=== PATIENT | male | born 1975 | race Caucasian/White ===

== ENCOUNTER 2020-02-03 22:58 | Inpatient (IN) ==
[2020-02-04] MEDS ORDERED: *HR* Promethazine 25 MG/ML VIAL IVP PRN (02:02)
[2020-02-04] MEDS ORDERED: Naloxone 0.4 MG/ML INJ IVP PRN (02:02)
[2020-02-04] MEDS ORDERED: *HR* OxyCODONE Immed Rel 5 MG TABLET PO ONE (02:12)
[2020-02-04] MEDS: 0.9 % Sodium Chloride 1,000 ML IVC SCH ×2 (02:41→17:20)
[2020-02-04] MEDS ORDERED: *HR* OxyCODONE Immed Rel 5 MG TABLET PO PRN ×2 (04:00→14:28)
[2020-02-04] MEDS ORDERED: Acetaminophen IV 1,000 MG/100 ML BAG IVPB ONE (04:00)
[2020-02-04] MEDS: *HR* Heparin 5,000 UNIT/ML VIAL SQ SCH ×2 (05:23→17:20)
[2020-02-04] MEDS: Piperacillin/Tazobactam 3.375 GM in 0.9 % Sodium Chloride Mini Bag 100 ML IVPB SCH ×3 (05:24→21:49)
[2020-02-04] MEDS ORDERED: Acetaminophen 325 MG TABLET PO PRN (06:00)
[2020-02-04 07:12] LABS: Basophils % 0.1 %; Hematocrit 29.1 % (37.5-50.1); Hemoglobin 9.5 g/dL (12.9-16.9); Immature Granulocytes % 0.9 % (0-4); Lymphocytes # 0.7 K/mcL (0.6-4.6); Lymphocytes % 5.4 %; Mean Corpuscular HGB Conc 32.6 g/dL (31.6-35.5); Mean Corpuscular Hemoglobin 27.9 pg (28.0-33.3); Mean Corpuscular Volume 85.6 fL (83.0-100.0); Mean Platelet Volume 9.4 fL (9.4-12.4); Monocytes # 0.2 K/mcL (0.0-1.3); Neutrophils # 11.1 K/mcL (1.6-8.9); Platelet Count 355 K/mcL (140-400); Red Cell Distribution Width 15.4 % (11.5-14.5); Segmented Neutrophils % 91.6 %; White Blood Count 12.2 K/mcL (4.3-11.1)
[2020-02-04 07:18] LABS: INR 1.3; Prothrombin Time 14.3 Seconds (9.4-12.1)
[2020-02-04 07:33] LABS: BUN/Creatinine Ratio 15 (6-26); Blood Urea Nitrogen 13 mg/dL (6-20); Calcium 8.2 mg/dL (8.6-10.3); Carbon Dioxide 23 mEq/L (23-29); Chloride 107 mEq/L (98-107); Glucose 179 mg/dL (70-105); Magnesium 1.5 mg/dL (1.6-2.6); Osmolality,Calculated 291 (280-300); Potassium 3.7 mEq/L (3.5-5.1); Sodium 138 mEq/L (136-145); eGFR For African Americans > 60 (> 60); eGFR For Non-African Americans > 60 (> 60)
[2020-02-04] MEDS ORDERED: *HR* OxyCODONE Immed Rel 5 MG TABLET PO SCH (15:30)
[2020-02-04] MEDS ORDERED: hydrOXYzine pamoate 25 MG CAPSULE PO PRN (16:08)
[2020-02-04] MEDS: Gabapentin 400 MG CAPSULE PO SCH ×2 (17:20→20:25)
[2020-02-04] MEDS: *HR* OxyCODONE Immed Rel 5 MG TABLET PO SCH (20:24)
[2020-02-04] MEDS ORDERED: Mirtazapine 15 MG TABLET PO SCH (21:00)
[2020-02-05] MEDS: *HR* OxyCODONE Immed Rel 5 MG TABLET PO SCH ×4 (02:04→20:17)
[2020-02-05 03:16] LABS: Basophils % 0.2 %; Eosinophils % 0.3 %; Hematocrit 29.4 % (37.5-50.1); Hemoglobin 9.3 g/dL (12.9-16.9); Immature Granulocytes % 0.7 % (0-4); Lymphocytes # 1.6 K/mcL (0.6-4.6); Lymphocytes % 14.9 %; Mean Corpuscular HGB Conc 31.6 g/dL (31.6-35.5); Mean Corpuscular Hemoglobin 27.4 pg (28.0-33.3); Mean Corpuscular Volume 86.7 fL (83.0-100.0); Mean Platelet Volume 9.7 fL (9.4-12.4); Monocytes # 0.5 K/mcL (0.0-1.3); Monocytes % 5.1 %; Neutrophils # 8.3 K/mcL (1.6-8.9); Platelet Count 373 K/mcL (140-400); Red Blood Count 3.39 M/mcL (4.19-5.50); Red Cell Distribution Width 15.6 % (11.5-14.5); Segmented Neutrophils % 78.8 %; White Blood Count 10.6 K/mcL (4.3-11.1)
[2020-02-05 03:36] LABS: BUN/Creatinine Ratio 14 (6-26); Blood Urea Nitrogen 13 mg/dL (6-20); Calcium 8.3 mg/dL (8.6-10.3); Carbon Dioxide 24 mEq/L (23-29); Chloride 109 mEq/L (98-107); Glucose 144 mg/dL (70-105); Osmolality,Calculated 295 (280-300); Potassium 3.5 mEq/L (3.5-5.1); Sodium 141 mEq/L (136-145); eGFR For African Americans > 60 (> 60); eGFR For Non-African Americans > 60 (> 60)
[2020-02-05] MEDS ORDERED: Levothyroxine 25 MCG TABLET PO SCH (06:30)
[2020-02-05] MEDS: Piperacillin/Tazobactam 3.375 GM in 0.9 % Sodium Chloride Mini Bag 100 ML IVPB SCH ×3 (06:45→23:14)
[2020-02-05] MEDS: *HR* Heparin 5,000 UNIT/ML VIAL SQ SCH (06:46)
[2020-02-05] MEDS: Gabapentin 400 MG CAPSULE PO SCH ×4 (07:02→21:16)
[2020-02-05 08:50] LABS: Estimated Average Glucose 128 mg/dl; Hemoglobin A1C 6.1 %
[2020-02-05] MEDS ORDERED: Bupivacaine/EPI 1:200k 0.25%PF 10 ML VIAL INFILT ONE (15:23)
[2020-02-05] MEDS ORDERED: Lidocaine 1% 20 ML MDV ONE (15:23)
[2020-02-05] MEDS ORDERED: Vancomycin 1,000 MG VIAL ONE (15:25)
[2020-02-05] MEDS ORDERED: *HR* Midazolam HCl 2 MG/2 ML VIAL ONE (15:28)
[2020-02-05] MEDS ORDERED: *HR* Propofol 200 MG/20 ML VIAL IVP ONE (15:29)
[2020-02-05] MEDS ORDERED: Lidocaine -MPF 2% 2 ML VIAL ONE (15:31)
[2020-02-05] MEDS ORDERED: *HR* FentaNYL (PF) 100 MCG/2 ML VIAL ONE (15:33)
[2020-02-05] MEDS ORDERED: Naloxone 0.4 MG/ML INJ IVP PRN ×3 (16:12→18:43)
[2020-02-05] MEDS ORDERED: *HR* FentaNYL (PF) 100 MCG/2 ML VIAL IVP PRN ×2 (16:12→18:43)
[2020-02-05] MEDS ORDERED: Ondansetron 4 MG/2 ML VIAL ONE (16:32)
[2020-02-05] MEDS ORDERED: Dexamethasone 4 MG/ML VIAL ONE (16:32)
[2020-02-05] MEDS: *HR* HYDROmorphone PF 0.5 MG/0.5 ML SYRINGE IVP PRN ×4 (17:13→17:29)
[2020-02-05] MEDS ORDERED: *HR* Promethazine 25 MG/ML VIAL IVP PRN (18:43)
[2020-02-05] MEDS ORDERED: hydrOXYzine pamoate 25 MG CAPSULE PO PRN (18:43)
[2020-02-05] MEDS: Mirtazapine 15 MG TABLET PO SCH (21:11)
[2020-02-06] MEDS: *HR* Heparin 5,000 UNIT/ML VIAL SQ SCH ×3 (00:09→17:58)
[2020-02-06] MEDS: *HR* OxyCODONE Immed Rel 5 MG TABLET PO SCH ×4 (02:12→20:29)
[2020-02-06] MEDS: Levothyroxine 25 MCG TABLET PO SCH (06:11)
[2020-02-06] MEDS: Piperacillin/Tazobactam 3.375 GM in 0.9 % Sodium Chloride Mini Bag 100 ML IVPB SCH ×3 (06:11→22:20)
[2020-02-06 07:06] LABS: Basophils % 0.3 %; Hematocrit 31.6 % (37.5-50.1); Immature Granulocytes % 1.8 % (0-4); Lymphocytes # 1.3 K/mcL (0.6-4.6); Mean Corpuscular HGB Conc 31.6 g/dL (31.6-35.5); Mean Corpuscular Hemoglobin 26.9 pg (28.0-33.3); Mean Corpuscular Volume 84.9 fL (83.0-100.0); Mean Platelet Volume 9.4 fL (9.4-12.4); Monocytes # 0.7 K/mcL (0.0-1.3); Monocytes % 5.7 %; Neutrophils # 9.3 K/mcL (1.6-8.9); Platelet Count 425 K/mcL (140-400); Red Blood Count 3.72 M/mcL (4.19-5.50); Red Cell Distribution Width 15.8 % (11.5-14.5); Segmented Neutrophils % 81.2 %; White Blood Count 11.4 K/mcL (4.3-11.1)
[2020-02-06 07:25] LABS: BUN/Creatinine Ratio 12 (6-26); Blood Urea Nitrogen 10 mg/dL (6-20); Calcium 8.8 mg/dL (8.6-10.3); Carbon Dioxide 26 mEq/L (23-29); Chloride 105 mEq/L (98-107); Glucose 137 mg/dL (70-105); Osmolality,Calculated 287 (280-300); Potassium 3.7 mEq/L (3.5-5.1); Sodium 138 mEq/L (136-145); eGFR For African Americans > 60 (> 60); eGFR For Non-African Americans > 60 (> 60)
[2020-02-06] MEDS: Gabapentin 400 MG CAPSULE PO SCH ×4 (07:50→20:30)
[2020-02-06] MEDS: DAPTOmycin 450 MG in 0.9 % Sodium Chloride 100 ML IVPB SCH (10:59)
[2020-02-06] MEDS: *HR* HYDROmorphone (PF) 1 MG/ML SYRINGE IVP PRN ×2 (17:58→22:19)
[2020-02-06] MEDS: Mirtazapine 15 MG TABLET PO SCH (20:31)
[2020-02-07] MEDS: *HR* OxyCODONE Immed Rel 5 MG TABLET PO SCH ×4 (02:36→20:07)
[2020-02-07] MEDS: *HR* HYDROmorphone (PF) 1 MG/ML SYRINGE IVP PRN ×4 (03:40→21:18)
[2020-02-07 05:32] LABS: Basophils # 0.1 K/mcL (0.0-0.2); Eosinophils # 0.1 K/mcL (0.0-0.6); Eosinophils % 1.4 %; Hemoglobin 10.1 g/dL (12.9-16.9); Immature Granulocytes % 4.4 % (0-4); Lymphocytes # 3.2 K/mcL (0.6-4.6); Lymphocytes % 31.6 %; Mean Corpuscular HGB Conc 31.6 g/dL (31.6-35.5); Mean Corpuscular Hemoglobin 27.6 pg (28.0-33.3); Mean Corpuscular Volume 87.4 fL (83.0-100.0); Mean Platelet Volume 9.3 fL (9.4-12.4); Monocytes # 0.9 K/mcL (0.0-1.3); Monocytes % 9.2 %; Neutrophils # 5.3 K/mcL (1.6-8.9); Platelet Count 432 K/mcL (140-400); Red Blood Count 3.66 M/mcL (4.19-5.50); Red Cell Distribution Width 15.7 % (11.5-14.5); Segmented Neutrophils % 52.4 %
[2020-02-07] MEDS: Levothyroxine 25 MCG TABLET PO SCH (05:44)
[2020-02-07] MEDS: *HR* Heparin 5,000 UNIT/ML VIAL SQ SCH ×2 (05:44→19:11)
[2020-02-07] MEDS: Piperacillin/Tazobactam 3.375 GM in 0.9 % Sodium Chloride Mini Bag 100 ML IVPB SCH (05:44)
[2020-02-07 05:53] LABS: % Iron Saturation 30 % (20-55); BUN/Creatinine Ratio 9 (6-26); Blood Urea Nitrogen 8 mg/dL (6-20); Carbon Dioxide 26 mEq/L (23-29); Chloride 108 mEq/L (98-107); Glucose 116 mg/dL (70-105); Iron 60 mcg/dL (65-175); Magnesium 1.9 mg/dL (1.6-2.6); Osmolality,Calculated 291 (280-300); Potassium 3.3 mEq/L (3.5-5.1); Sodium 141 mEq/L (136-145); Transferrin 144 mg/dL (203-362); eGFR For African Americans > 60 (> 60); eGFR For Non-African Americans > 60 (> 60)
[2020-02-07 06:08] LABS: Ferritin 101 ng/mL (20-250)
[2020-02-07 06:14] LABS: Folate 4.2 ng/mL (3.0-16.0)
[2020-02-07] MEDS: Gabapentin 400 MG CAPSULE PO SCH ×4 (09:34→20:09)
[2020-02-07] MEDS: DAPTOmycin 450 MG in 0.9 % Sodium Chloride 100 ML IVPB SCH (09:35)
[2020-02-07] MEDS: ceFAZolin 2,000 MG in 0.9 % Sodium Chloride 100 ML IVPB SCH ×2 (19:19→23:49)
[2020-02-07] MEDS: Mirtazapine 15 MG TABLET PO SCH (20:08)
[2020-02-08] MEDS: *HR* OxyCODONE Immed Rel 5 MG TABLET PO SCH ×3 (02:04→15:04)
[2020-02-08 02:05] LABS: Basophils # 0.1 K/mcL (0.0-0.2); Basophils % 1.1 %; Eosinophils # 0.3 K/mcL (0.0-0.6); Eosinophils % 2.5 %; Hematocrit 32.6 % (37.5-50.1); Hemoglobin 10.3 g/dL (12.9-16.9); Immature Granulocytes % 4.9 % (0-4); Lymphocytes # 3.3 K/mcL (0.6-4.6); Lymphocytes % 31.1 %; Mean Corpuscular HGB Conc 31.6 g/dL (31.6-35.5); Mean Corpuscular Hemoglobin 27.9 pg (28.0-33.3); Mean Corpuscular Volume 88.3 fL (83.0-100.0); Mean Platelet Volume 9.2 fL (9.4-12.4); Neutrophils # 5.4 K/mcL (1.6-8.9); Platelet Count 423 K/mcL (140-400); Red Blood Count 3.69 M/mcL (4.19-5.50); Red Cell Distribution Width 15.7 % (11.5-14.5); Segmented Neutrophils % 51.4 %; White Blood Count 10.6 K/mcL (4.3-11.1)
[2020-02-08 02:24] LABS: BUN/Creatinine Ratio 8 (6-26); Blood Urea Nitrogen 7 mg/dL (6-20); Calcium 8.7 mg/dL (8.6-10.3); Carbon Dioxide 30 mEq/L (23-29); Chloride 106 mEq/L (98-107); Glucose 98 mg/dL (70-105); Magnesium 1.9 mg/dL (1.6-2.6); Osmolality,Calculated 292 (280-300); Potassium 3.8 mEq/L (3.5-5.1); Sodium 142 mEq/L (136-145); eGFR For African Americans > 60 (> 60); eGFR For Non-African Americans > 60 (> 60)
[2020-02-08] MEDS: *HR* Heparin 5,000 UNIT/ML VIAL SQ SCH (06:33)
[2020-02-08] MEDS: Levothyroxine 25 MCG TABLET PO SCH (06:33)
[2020-02-08] MEDS: *HR* HYDROmorphone (PF) 1 MG/ML SYRINGE IVP PRN ×2 (06:36→11:09)
[2020-02-08] MEDS: Gabapentin 400 MG CAPSULE PO SCH ×2 (08:54→12:39)
[2020-02-08] MEDS: ceFAZolin 2,000 MG in 0.9 % Sodium Chloride 100 ML IVPB SCH ×2 (08:58→15:05)
[2020-02-08 14:27] VITALS: BP 117/75
[2020-02-08] MEDS ORDERED: *HR* HYDROmorphone (PF) 1 MG/ML SYRINGE IVP ONE (15:30)
== END 2020-02-08 17:52 | disposition home health service (06) | DRG 854 ==
LOC: 3ANU → SUATTDRO 02-04 02:05 → 3ANU 02-07 15:25
PROVIDERS: ADMIT Family Medicine; ATTEND Pharmacist

== ENCOUNTER 2020-02-14 23:03 | Inpatient (IN) ==
[2020-02-15] MEDS ORDERED: Naloxone 0.4 MG/ML INJ IVP PRN (01:57)
[2020-02-15] MEDS ORDERED: *HR* Promethazine 25 MG/ML VIAL IVP PRN (01:57)
[2020-02-15] MEDS ORDERED: Acetaminophen 325 MG TABLET PO PRN (01:57)
[2020-02-15] MEDS ORDERED: Acetaminophen 325 MG TABLET PO ONE (01:57)
[2020-02-15] MEDS ORDERED: *HR* Heparin 5,000 UNIT/ML VIAL IVP PRN ×3 (02:04→02:46)
[2020-02-15] MEDS ORDERED: Heparin 25,000 UNIT/250 ML D5W 25,000 UNIT/250 ML IV.SOLN IVC SCH (02:15)
[2020-02-15] MEDS: 0.9 % Sodium Chloride 1,000 ML IVC SCH ×2 (02:33→13:26)
[2020-02-15] MEDS ORDERED: *HR* Heparin 5,000 UNIT/ML VIAL IVP ONE (02:46)
[2020-02-15] MEDS: Piperacillin/Tazobactam 3.375 GM in 0.9 % Sodium Chloride Mini Bag 100 ML IVPB SCH ×3 (03:54→20:11)
[2020-02-15] MEDS: *HR* OxyCODONE Immed Rel 5 MG TABLET PO PRN ×3 (04:02→16:16)
[2020-02-15] MEDS: Heparin 25,000 UNIT/250 ML D5W 25,000 UNIT/250 ML IV.SOLN IVC SCH ×2 (04:04→20:17)
[2020-02-15 05:35] LABS: Basophils # 0.1 K/mcL (0.0-0.2); Basophils % 0.3 %; Eosinophils # 0.1 K/mcL (0.0-0.6); Eosinophils % 0.8 %; Hematocrit 29.8 % (37.5-50.1); Hemoglobin 9.6 g/dL (12.9-16.9); Immature Granulocytes % 0.4 % (0-4); Lymphocytes # 1.9 K/mcL (0.6-4.6); Lymphocytes % 10.4 %; Mean Corpuscular HGB Conc 32.2 g/dL (31.6-35.5); Mean Corpuscular Hemoglobin 28.4 pg (28.0-33.3); Mean Corpuscular Volume 88.2 fL (83.0-100.0); Mean Platelet Volume 10.1 fL (9.4-12.4); Monocytes # 1.6 K/mcL (0.0-1.3); Monocytes % 8.9 %; Neutrophils # 14.5 K/mcL (1.6-8.9); Platelet Count 396 K/mcL (140-400); Red Blood Count 3.38 M/mcL (4.19-5.50); Red Cell Distribution Width 16.4 % (11.5-14.5); Segmented Neutrophils % 79.2 %; White Blood Count 18.4 K/mcL (4.3-11.1)
[2020-02-15 05:37] LABS: Heparin anti-factor XA UFH 0.23 IU/mL (0.30-0.70); INR 1.3; Prothrombin Time 14.6 Seconds (9.4-12.1)
[2020-02-15 05:44] LABS: Alanine Aminotransferase 5 Units/L (7-52); Albumin 3.5 g/dL (3.5-5.7); Albumin/Globulin Ratio 1.3 (1.1-2.2); Alkaline Phosphatase 80 Units/L (34-104); Aspartate Amino Transferase 8 Units/L (13-39); BUN/Creatinine Ratio 12 (6-26); Bilirubin,Total 0.4 mg/dL (0.3-1.0); Blood Urea Nitrogen 10 mg/dL (6-20); Calcium 8.1 mg/dL (8.6-10.3); Carbon Dioxide 23 mEq/L (23-29); Chloride 106 mEq/L (98-107); Globulin 2.6 g/dL (2.4-3.5); Glucose 117 mg/dL (70-105); Magnesium 1.7 mg/dL (1.6-2.6); Osmolality,Calculated 286 (280-300); Phosphorous 2.7 mg/dL (2.7-4.5); Potassium 3.5 mEq/L (3.5-5.1); Sodium 138 mEq/L (136-145); Total Protein 6.1 g/dL (6.4-8.9); eGFR For African Americans > 60 (> 60); eGFR For Non-African Americans > 60 (> 60)
[2020-02-15] MEDS: *HR* Heparin 5,000 UNIT/ML VIAL IVP PRN ×2 (06:23→18:52)
[2020-02-15] MEDS ORDERED: Lactobacillus 1 EACH CAP.SPRINK PO SCH (09:00)
[2020-02-15 15:04] LABS: Creatine Kinase 29 Units/L (30-223)
[2020-02-15] MEDS ORDERED: hydrOXYzine pamoate 25 MG CAPSULE PO PRN (16:10)
[2020-02-15] MEDS: Gabapentin 400 MG CAPSULE PO SCH ×2 (17:12→20:12)
[2020-02-15] MEDS ORDERED: DAPTOmycin 600 MG in 0.9 % Sodium Chloride 100 ML IVPB SCH (20:00)
[2020-02-15] MEDS: DAPTOmycin 600 MG in 0.9 % Sodium Chloride 100 ML IVPB SCH (20:12)
[2020-02-15] MEDS: Lactobacillus 1 EACH CAP.SPRINK PO SCH (20:12)
[2020-02-15] MEDS: Mirtazapine 15 MG TABLET PO SCH (20:12)
[2020-02-15] MEDS: *HR* HYDROcodone/Acet 5/325 mg TABLET PO PRN (20:51)
[2020-02-16 01:49] LABS: Hematocrit 29.9 % (37.5-50.1); Hemoglobin 9.5 g/dL (12.9-16.9); Mean Corpuscular HGB Conc 31.8 g/dL (31.6-35.5); Mean Corpuscular Hemoglobin 28.1 pg (28.0-33.3); Mean Corpuscular Volume 88.5 fL (83.0-100.0); Mean Platelet Volume 10.1 fL (9.4-12.4); Platelet Count 366 K/mcL (140-400); Red Blood Count 3.38 M/mcL (4.19-5.50); Red Cell Distribution Width 16.7 % (11.5-14.5); White Blood Count 10.1 K/mcL (4.3-11.1)
[2020-02-16 02:08] LABS: BUN/Creatinine Ratio 9 (6-26); Blood Urea Nitrogen 7 mg/dL (6-20); Calcium 8.6 mg/dL (8.6-10.3); Carbon Dioxide 22 mEq/L (23-29); Chloride 111 mEq/L (98-107); Glucose 115 mg/dL (70-105); Osmolality,Calculated 291 (280-300); Potassium 3.7 mEq/L (3.5-5.1); Sodium 141 mEq/L (136-145); eGFR For African Americans > 60 (> 60); eGFR For Non-African Americans > 60 (> 60)
[2020-02-16] MEDS: Piperacillin/Tazobactam 3.375 GM in 0.9 % Sodium Chloride Mini Bag 100 ML IVPB SCH ×3 (04:03→20:21)
[2020-02-16] MEDS: *HR* OxyCODONE Immed Rel 5 MG TABLET PO PRN ×3 (05:16→22:04)
[2020-02-16] MEDS: Levothyroxine 25 MCG TABLET PO SCH (05:16)
[2020-02-16] MEDS: Lactobacillus 1 EACH CAP.SPRINK PO SCH ×2 (07:46→20:22)
[2020-02-16] MEDS: Gabapentin 400 MG CAPSULE PO SCH ×4 (07:46→20:23)
[2020-02-16] MEDS: Heparin 25,000 UNIT/250 ML D5W 25,000 UNIT/250 ML IV.SOLN IVC SCH (12:07)
[2020-02-16] MEDS: *HR* Rivaroxaban 15 MG TABLET PO SCH (15:23)
[2020-02-16] MEDS: Mirtazapine 15 MG TABLET PO SCH (20:22)
[2020-02-16] MEDS: DAPTOmycin 600 MG in 0.9 % Sodium Chloride 100 ML IVPB SCH (20:22)
[2020-02-16] MEDS: *HR* HYDROcodone/Acet 5/325 mg TABLET PO PRN (20:23)
[2020-02-17 03:04] LABS: Hematocrit 31.3 % (37.5-50.1); Hemoglobin 9.9 g/dL (12.9-16.9); Mean Corpuscular HGB Conc 31.6 g/dL (31.6-35.5); Mean Corpuscular Volume 88.7 fL (83.0-100.0); Mean Platelet Volume 10.1 fL (9.4-12.4); Platelet Count 374 K/mcL (140-400); Red Blood Count 3.53 M/mcL (4.19-5.50); Red Cell Distribution Width 16.9 % (11.5-14.5); White Blood Count 8.3 K/mcL (4.3-11.1)
[2020-02-17 03:44] LABS: BUN/Creatinine Ratio 9 (6-26); Blood Urea Nitrogen 8 mg/dL (6-20); Calcium 9.2 mg/dL (8.6-10.3); Carbon Dioxide 24 mEq/L (23-29); Chloride 108 mEq/L (98-107); Glucose 106 mg/dL (70-105); Magnesium 1.9 mg/dL (1.6-2.6); Osmolality,Calculated 291 (280-300); Potassium 3.8 mEq/L (3.5-5.1); Sodium 141 mEq/L (136-145); eGFR For African Americans > 60 (> 60); eGFR For Non-African Americans > 60 (> 60)
[2020-02-17] MEDS: Piperacillin/Tazobactam 3.375 GM in 0.9 % Sodium Chloride Mini Bag 100 ML IVPB SCH (03:53)
[2020-02-17] MEDS: Levothyroxine 25 MCG TABLET PO SCH (05:13)
[2020-02-17] MEDS: *HR* OxyCODONE Immed Rel 5 MG TABLET PO PRN (06:35)
[2020-02-17] MEDS: *HR* Rivaroxaban 15 MG TABLET PO SCH (08:29)
[2020-02-17] MEDS: Lactobacillus 1 EACH CAP.SPRINK PO SCH (08:29)
[2020-02-17] MEDS: Gabapentin 400 MG CAPSULE PO SCH ×2 (08:29→13:06)
[2020-02-17 08:35] VITALS: BP 125/76
== END 2020-02-17 13:20 | disposition home or self-care (01) | DRG 872 ==
LOC: 3ANU → SUATTDRO 02-15 01:57 → 2NENU 02-15 09:26
PROVIDERS: ADMIT Family Medicine; ATTEND Internal Medicine